=== PATIENT | female | born 1955 | race African-American/Black ===

== ENCOUNTER 2016-12-13 22:02 | Emergency (ER) | payer OTHER, SELFPAY ==
[~2016-12-13 22:02] MED LIST: Iopamidol 370 76% 100 ML VIAL ONE; Sodium Chloride 0.9% 1,000 ML BAG ONE
[2016-12-13 22:41] LABS: Bilirubin Small (Negative); Blood, Urine Negative (Negative); Clarity Clear (Clear); Glucose, Urine (Dipstick) Negative (Negative); Icto Negative (Negative); Leukocyte Trace (Negative); Nitrite Negative (Negative); Protein, Urine (Dipstick) Negative (Neg-Trace); RBC/HPF 0-3 HPF (0-3); Transitional Epithelial 0-3 HPF (0-3); pH, Urine 5.5 (5.0-9.0)
[2016-12-13 22:42] LABS: Bacteria/HPF 1+ HPF (None Seen); Renal Epithelial 0-3 HPF (0-3)
[2016-12-13] MEDS ORDERED: Morphine Sulfate 2 MG/ML SYRINGE ONE (22:55)
[2016-12-13 23:08] LABS: #Basophils 0.1 thou/uL (0.0-0.2); #Eosinphils 0.1 thou/uL (0.0-0.7); #Lymphocytes 2.7 thou/uL (1.20-3.40); #Monocytes 0.6 thou/uL (0.11-0.59); %Basophils 1.6 % (0.0-1.0); %Eosinophils 0.9 % (0.0-10.0); %Lymphocytes 49.9 % (21.0-51.0); %Monocytes 10.8 % (0.0-10.0); %Neutrophils 36.9 % (42.0-75.0); Hemoglobin 14.7 g/dL (12.0-16.0); Mean Corpuscular HGB CONC 32.7 g/dL (32.0-36.0); Mean Corpuscular Hemoglobin 31.5 pg (27.0-31.0); Mean Corpuscular Volume 96.4 fl (81.0-99.0); Mean Platelet Volume 13.6 fL (7.4-10.4); Platelet Count 179 thou/uL (130-400); RBC Distribution Width 13.4 % (11.5-14.5); Red Blood Cell (RBC) Count 4.66 mill/uL (4.20-5.40); White Blood Cell (WBC) Count 5.5 thou/uL (4.8-10.8)
[2016-12-13 23:10] LABS: Macrocytosis SLIGHT = 6-15 cells (100X) (0-5/hpf)
[2016-12-13 23:11] LABS: PLT Morphology Comment Appears Adequate
[2016-12-13 23:12] LABS: RBC Morphology A
[2016-12-13 23:14] LABS: MDiff Complete? YES
[2016-12-13 23:15] LABS: ALT (SGPT) 20 U/L (8-55); AST (SGOT) 19 U/L (5-34); Albumin 4.2 g/dL (3.5-5.0); Alkaline Phosphatase 68 U/L (40-150); Anion Gap 15 mmol/L (10-20); BUN (Urea Nitrogen) 10 mg/dL (9.8-20.1); Bilirubin, Total 0.8 mg/dL (0.2-1.2); Calc. Creatinine Clearance 0 mL/min (70-130); Calcium 11.1 mg/dL (7.8-10.44); Carbon Dioxide 28 mmol/L (22-29); Chloride 101 mmol/L (98-107); Estimated GFR-MDRD 84; Globulin 3.6 g/dL (2.4-3.5); Glucose 105 mg/dL (70-105); Potassium 3.4 mmol/L (3.5-5.1); Protein, Total 7.8 g/dL (6.0-8.3); Sodium 141 mmol/L (136-145)
--- NOTE | 2016-12-13 23:19 | CT ---
CT ABDOMEN AND PELVIS WITH IV CONTRAST 12/13/16 Multiple axial tomograms obtained through the abdomen and pelvis with IV enhancement. Oral contrast was not given. HISTORY: Acute abdominal pain. FINDINGS: The lung bases are clear. The liver, spleen, and pancreas appear unremarkable. There are numerous densely calcified gallstones packed within the gallbladder. No significant biliar y duct dilatation seen. No definite pericholecystic edema noted by CT. Adrenal glands and kidneys are unremarkable. Small bowel loops appear normal caliber. The appendix appears normal. Colon is unremarkable. Scatter ed diverticula without definite evidence of diverticulitis. Image through the pelvis reveals an abnormal uterus. The uterine fundus is enlarged and heterogeneou s measuring up to 7 cm. This may represent a large necrotic fibroid. Aorta is normal caliber. No adenopathy seen. IMPRESSION: 1. Numerous densely calcified gallstones packed within the gallbladder. Consider cholecystitis, although no definite CT evidence of cholecystitis. 2. Enlarged heterogeneous uterine fundus probably representing a leiomyoma. Suggest a followup elective MRI of pelvis for confirmation. POS: [facility]
[2016-12-13] MEDS ORDERED: HYDROcodone/Acetaminophen 10/325 mg Tablet ONE (23:41)
[2016-12-14 20:00] LABS: Lipase 4 U/L (8-78)
== END 2016-12-13 23:55 | disposition home or self-care (01) ==
LOC: MADERS 22:02
DX: K80.20 Calculus of gallbladder without cholecystitis without obstruction (principal); D25.9 Leiomyoma of uterus, unspecified; I10 Essential (primary) hypertension; Z79.82 Long term (current) use of aspirin; Z79.899 Other long term (current) drug therapy
CPT/HCPCS: 74177; 80053; 81001; 83690; 85025; 96361; 96374; J2270; J7050

== ENCOUNTER 2016-12-15 10:01 | Outpatient (CLI) | payer OTHER ==
--- NOTE | 2016-12-15 13:41 | ULT ---
ULTRASOUND ABDOMEN: HISTORY: Right upper quadrant pain. Possible gallstones. COMPARISON: CT abdomen and pelvis 12/13/16. FINDINGS: Visualized portions of the pancreas are unremarkable. Hepatic echotexture is normal. There are numerous cholelithiasis. Common bile duct measures 2 mm. Gallbladder wall thickness is 3 mm. No pericholecystic fluid. The right kidney measures 10.9 x 3.6 x 5.9 cm. The left kidney measures 9.6 x 5.6 x 5.1 cm. No mass, hydronephrosis, or abnormal calcifications of either kidney. The visualized aorta and IVC are unremarkable. Spleen is unremarkable. Sonographic Rg's sign, according to the technologist, is positive. IMPRESSION: Positive sonographic Rg's sign according to the technologist as well as cholelithiasis and gallb ladder wall thickness upper limits of normal. This may represent low-grade cholecystitis. Surgical consultation is recommended. CODE T POS: [facility]
== END 2016-12-15 10:02 | disposition home or self-care (01) ==
LOC: MADULT 10:01
PROVIDERS: ATTEND Family Medicine
DX: K80.20 Calculus of gallbladder without cholecystitis without obstruction (principal); K82.8 Other specified diseases of gallbladder
CPT/HCPCS: 76700

== ENCOUNTER 2016-12-27 04:38 | Emergency (ER) | payer OTHER | END 2016-12-27 04:50 | disposition left against medical advice (07) | LOC: MADERS 04:38 | DX: Z53.21 Procedure and treatment not carried out due to patient leaving prior to being seen by health care provider (principal) ==

== ENCOUNTER 2016-12-27 12:48 | Emergency (ER) | payer OTHER ==
[2016-12-27 13:28] LABS: Bilirubin Negative (Negative); Clarity Hazy (Clear); Glucose, Urine (Dipstick) Negative (Negative); Icto Negative (Negative); Leukocyte Trace (Negative); Nitrite Negative (Negative); Protein, Urine (Dipstick) Negative (Neg-Trace); Urobilinogen 0.2 mg/dL (0.2-1.0); pH, Urine 5.5 (5.0-9.0)
[2016-12-27 13:29] LABS: Blood, Urine Negative (Negative)
[2016-12-27 13:30] LABS: Bacteria/HPF Rare-Few HPF (None Seen); RBC/HPF None Seen HPF (0-3)
== END 2016-12-27 13:52 | disposition home or self-care (01) ==
LOC: MADERS 12:48
DX: E86.0 Dehydration (principal)
CPT/HCPCS: 81003; 81015; 99284

== ENCOUNTER 2017-11-21 16:22 | Outpatient (CLI) | payer OTHER ==
--- NOTE | 2017-11-21 18:19 | RAD ---
4 VIEWS RIGHT KNEE: Date: 11/21/17 HISTORY: Pain and swelling x2 weeks. COMPARISON: None. FINDINGS: There is no joint effusion. Mild degenerative changes of patellofemoral compartment. Moderate degener ative change of the medial compartment. No fracture or dislocation. IMPRESSION: Bicompartmental degenerative change. No fracture. POS: [facility]
== END 2017-11-21 16:23 | disposition home or self-care (01) ==
LOC: MADRAD 16:22
PROVIDERS: ATTEND Internal Medicine
DX: M25.561 Pain in right knee (principal); M17.11 Unilateral primary osteoarthritis, right knee

== ENCOUNTER 2018-05-05 09:15 | Emergency (ER) | payer OTHER ==
[2018-05-05] MEDS ORDERED: Ketorolac Tromethamine 30 MG/ML VIAL ONE (09:51)
--- NOTE | 2018-05-05 11:51 | RAD ---
THREE VIEWS OF THE RIGHT SHOULDER: DATE: 05/05/2018. COMPARISON: None. HISTORY: Shoulder injury. FINDINGS: There is mild degenerative change involving the right acromioclavicular joint. There is osteophyte f ormation involving the inferior aspect of the glenoid. There is osseous irregularity of the greater tuberosity, likely degenerative in nature. There is no displaced fracture or evidence of dislocation . There is a curvilinear osseous density along the inferior aspect of the glenoid which could repres ent an old fracture fragment or an osteophyte. IMPRESSION: Chronic-appearing findings as described above. No displaced fracture or evidence of dislocation seen . POS: [facility]
== END 2018-05-05 10:19 | disposition home or self-care (01) ==
LOC: MADERS 09:15
DX: S40.011A Contusion of right shoulder, initial encounter (principal); S81.012A Laceration without foreign body, left knee, initial encounter; E78.5 Hyperlipidemia, unspecified; I10 Essential (primary) hypertension; F41.9 Anxiety disorder, unspecified; F32.9 Major depressive disorder, single episode, unspecified; Z79.899 Other long term (current) drug therapy; Z79.82 Long term (current) use of aspirin; W11.XXXA Fall on and from ladder, initial encounter
CPT/HCPCS: 96372; J1885

== ENCOUNTER 2019-10-30 19:55 | Emergency (ER) | payer OTHER ==
[2019-10-30 20:38] LABS: Bilirubin Small (Negative); Blood, Urine Trace (Negative); Clarity Clear (Clear); Glucose, Urine (Dipstick) Negative (Negative); Ketone, Urine Negative (Negative); Leukocyte Negative (Negative); Nitrite Negative (Negative); Protein, Urine (Dipstick) 100 mg/dL (Neg-Trace); Urobilinogen 0.2 mg/dL (Less than 2)
[2019-10-30 20:39] LABS: Specific Gravity, Urine 1.021 (1.002-1.036)
[2019-10-30 20:44] LABS: Bacteria/HPF Rare-Few HPF (None Seen); RBC/HPF 0-3 HPF (0-3); Squamous Epithelial 0-3 HPF (0-3); WBC/HPF 0-3 HPF (0-3)
[2019-10-30] MEDS ORDERED: Ondansetron PF 4 MG/2 ML Vial ONE (20:49)
[2019-10-30] MEDS ORDERED: Sodium Chloride 0.9% 1,000 ML ONE (20:49)
[2019-10-30 20:51] LABS: #Lymphocytes 1.9 thou/uL (1.20-3.40); #Monocytes 0.5 thou/uL (0.11-0.59); #Neutrophils 1.7 thou/uL (1.40-6.50); %Basophils 0.4 % (0.0-1.0); %Lymphocytes 46.4 % (21.0-51.0); %Monocytes 12.3 % (0.0-10.0); %Neutrophils 40.9 % (42.0-75.0); Hemoglobin 15.3 g/dL (12.0-16.0); Mean Corpuscular HGB CONC 30.5 g/dL (32.0-36.0); Mean Corpuscular Hemoglobin 29.3 pg (27.0-31.0); Mean Corpuscular Volume 95.9 fL (78.0-98.0); Mean Platelet Volume 9.3 fL (7.4-10.4); Platelet Count 258 thou/uL (130-400); RBC Distribution Width 13.1 % (11.5-14.5); Red Blood Cell (RBC) Count 5.23 mill/uL (4.20-5.40); White Blood Cell (WBC) Count 4.1 thou/uL (4.8-10.8)
[2019-10-30 21:07] LABS: ALT (SGPT) 29 U/L (8-55); AST (SGOT) 29 U/L (5-34); Albumin 4.4 g/dL (3.4-4.8); Alkaline Phosphatase 82 U/L (40-110); Anion Gap 15 mmol/L (10-20); BUN (Urea Nitrogen) 10 mg/dL (9.8-20.1); Bilirubin, Total 0.8 mg/dL (0.2-1.2); Calc. Creatinine Clearance 0 mL/min (70-130); Calcium 10.6 mg/dL (7.8-10.44); Carbon Dioxide 27 mmol/L (23-31); Chloride 101 mmol/L (98-107); Estimated GFR-MDRD 77; Globulin 3.7 g/dL (2.4-3.5); Glucose 124 mg/dL (80-115); Protein, Total 8.1 g/dL (6.0-8.3); Sodium 140 mmol/L (136-145)
--- NOTE | 2019-10-30 21:09 | RAD ---
Chest AP view INDICATION: Hot flashes and cough COMPARISON: None FINDINGS: Lungs: The lungs are clear Cardiac silhouette: The cardiomediastinal silhouette appears within normal limits. Pulmonary vasculature: Normal Pleural spaces: No pleural effusion or pneumothorax is demonstrated. Upper abdomen: No abnormality seen. Osseous structures: No acute osseous abnormality. Additional findings: None. IMPRESSION: No acute cardiopulmonary abnormality.
[2019-10-30] MEDS ORDERED: Potassium Chloride 20 MEQ TAB ONE (21:43)
[2019-10-30] MEDS ORDERED: Enoxaparin Sodium 100 MG/ML SYRINGE ONE (21:44)
[2019-10-30 21:53] LABS: PTT 27.5 sec (22.9-36.1); Prothrombin Time 13.6 sec (12.0-14.7)
[2019-10-30 22:09] LABS: CKMB 2.4 ng/mL (0-6.6)
[2019-11-01 13:21] LABS: SARS-CoV-2 MS2 Positive; SARS-CoV-2 N Gene Positive; SARS-CoV-2 S Gene Positive; SARS-CoV-2 orf1ab Positive
== END 2019-10-31 00:30 | disposition short-term general hospital (02) ==
LOC: MADERS 19:55
DX: I48.91 Unspecified atrial fibrillation (principal); R19.7 Diarrhea, unspecified; R53.1 Weakness; E78.5 Hyperlipidemia, unspecified; E78.00 Pure hypercholesterolemia, unspecified; I10 Essential (primary) hypertension; F41.9 Anxiety disorder, unspecified; F32.9 Major depressive disorder, single episode, unspecified; Z79.82 Long term (current) use of aspirin; Z79.899 Other long term (current) drug therapy
CPT/HCPCS: 71045; 80053; 81003; 81015; 82550; 82553; 84484; 85025; 85610; 85730; 87635; 93005; 96361; 96372; 96374; J1650; J2405; J7050; U0003

== ENCOUNTER 2021-06-25 13:41 | Emergency (ER) | payer BC, OTHER | END 2021-06-25 15:03 | disposition home or self-care (01) | LOC: MADERS 13:41 | DX: S13.4XXA Sprain of ligaments of cervical spine, initial encounter (principal); I48.91 Unspecified atrial fibrillation; E78.5 Hyperlipidemia, unspecified; I10 Essential (primary) hypertension; Z79.899 Other long term (current) drug therapy; Z79.01 Long term (current) use of anticoagulants; X50.9XXA Other and unspecified overexertion or strenuous movements or postures, initial encounter | CPT/HCPCS: 99283 ==

== ENCOUNTER 2021-11-10 14:36 | Emergency (ER) | payer BC, OTHER ==
[2021-11-10] MEDS ORDERED: Potassium Chloride 20 MEQ TAB ONE (15:00)
[2021-11-10] MEDS ORDERED: Potassium Chloride 20 MEQ/100 ML PREMIX BAG ONE (15:00)
[2021-11-10 15:34] LABS: Magnesium 1.9 mg/dL (1.6-2.6)
[2021-11-10] MEDS ORDERED: Sodium Chloride 0.9% 1,000 ML ONE (16:04)
[2021-11-10 17:38] LABS: Anion Gap 18 mmol/L (10-20); BUN (Urea Nitrogen) 14 mg/dL (9.8-20.1); Calc. Creatinine Clearance 0 mL/min (70-130); Calcium 10.3 mg/dL (7.8-10.44); Carbon Dioxide 22 mmol/L (23-31); Chloride 103 mmol/L (98-107); Estimated GFR 89; Glucose 97 mg/dL (80-115); Potassium 3.7 mmol/L (3.5-5.1); Sodium 139 mmol/L (136-145)
== END 2021-11-10 18:12 | disposition home or self-care (01) ==
LOC: MADERS 14:36
DX: E87.6 Hypokalemia (principal); I48.91 Unspecified atrial fibrillation; I10 Essential (primary) hypertension; E78.5 Hyperlipidemia, unspecified; E78.00 Pure hypercholesterolemia, unspecified; Z79.01 Long term (current) use of anticoagulants; Z79.899 Other long term (current) drug therapy
CPT/HCPCS: 36415; 71045; 83735; 83880; 93005; 94760; 96361; 96374; J3480; J7050

== ENCOUNTER 2021-11-19 18:53 | Emergency (ER) | payer BC, OTHER ==
[2021-11-19] MEDS ORDERED: Dicyclomine 10 MG CAP ONE (19:39)
[2021-11-19] MEDS ORDERED: Dicyclomine 20 MG/2 ML VIAL ONE (19:39)
== END 2021-11-19 19:57 | disposition home or self-care (01) ==
LOC: MADERS 18:53
DX: K59.00 Constipation, unspecified (principal); I10 Essential (primary) hypertension; E78.5 Hyperlipidemia, unspecified; E78.00 Pure hypercholesterolemia, unspecified; I48.91 Unspecified atrial fibrillation; Z79.01 Long term (current) use of anticoagulants; Z79.899 Other long term (current) drug therapy
CPT/HCPCS: 99283

== ENCOUNTER 2021-11-25 14:21 | Outpatient (CLI) | payer BC, OTHER ==
[2021-11-25 14:59] LABS: Anion Gap 15 mmol/L (10-20); BUN (Urea Nitrogen) 9 mg/dL (9.8-20.1); Calc. Creatinine Clearance 0 mL/min (70-130); Calcium 10.7 mg/dL (7.8-10.44); Carbon Dioxide 26 mmol/L (23-31); Chloride 103 mmol/L (98-107); Estimated GFR 82; Glucose 99 mg/dL (80-115); Potassium 3.5 mmol/L (3.5-5.1); Sodium 140 mmol/L (136-145)
== END 2021-11-25 14:22 | disposition home or self-care (01) ==
LOC: MADLAB 14:21
PROVIDERS: ATTEND Family Medicine
DX: E87.6 Hypokalemia (principal)
CPT/HCPCS: 36415; 80048

== ENCOUNTER 2022-02-08 16:15 | Outpatient (CLI) | payer BC, OTHER | END 2022-02-08 16:16 | disposition home or self-care (01) | LOC: MADEKG 16:15 | PROVIDERS: ATTEND Family Medicine | DX: R00.1 Bradycardia, unspecified (principal) | CPT/HCPCS: 93005; 93010 ==

== ENCOUNTER 2022-02-27 06:33 | Outpatient (CLI) | payer BC, OTHER ==
[2022-02-27 07:21] LABS: Anion Gap 14 mmol/L (10-20); BUN (Urea Nitrogen) 12 mg/dL (9.8-20.1); Calc. Creatinine Clearance 0 mL/min (70-130); Calcium 10.3 mg/dL (7.8-10.44); Carbon Dioxide 27 mmol/L (23-31); Chloride 105 mmol/L (98-107); Estimated GFR 90; Glucose 104 mg/dL (80-115); Potassium 3.5 mmol/L (3.5-5.1); Sodium 142 mmol/L (136-145)
== END 2022-02-27 06:34 | disposition home or self-care (01) ==
LOC: MADLAB 06:33
PROVIDERS: ATTEND Family Medicine
DX: E87.6 Hypokalemia (principal)
CPT/HCPCS: 36415; 80048

== ENCOUNTER 2022-03-03 17:56 | Emergency (ER) | payer BC, OTHER ==
[2022-03-03] MEDS ORDERED: Azithromycin 250 MG TAB ONE (18:54)
== END 2022-03-03 19:01 | disposition home or self-care (01) ==
LOC: MADERS 17:56
DX: H66.91 Otitis media, unspecified, right ear (principal); I10 Essential (primary) hypertension; E78.00 Pure hypercholesterolemia, unspecified; Z79.01 Long term (current) use of anticoagulants; Z79.899 Other long term (current) drug therapy
CPT/HCPCS: 99282

== ENCOUNTER 2022-12-10 17:47 | Emergency (ER) | payer BC, MEDICARE | END 2022-12-10 18:27 | disposition home or self-care (01) | LOC: MADERS 17:47 | DX: S29.012A Strain of muscle and tendon of back wall of thorax, initial encounter (principal); I10 Essential (primary) hypertension; H66.92 Otitis media, unspecified, left ear; I48.91 Unspecified atrial fibrillation; E11.9 Type 2 diabetes mellitus without complications; E78.5 Hyperlipidemia, unspecified; X50.0XXA Overexertion from strenuous movement or load, initial encounter; Z79.01 Long term (current) use of anticoagulants; Z79.899 Other long term (current) drug therapy | CPT/HCPCS: 99282 ==

== ENCOUNTER 2023-06-20 17:42 | Emergency (ER) | payer MEDICARE ==
[2023-06-20] MEDS ORDERED: cloNIDine 0.1 MG TAB ONE (19:07)
[2023-06-20 19:21] LABS: Bilirubin Negative (Negative); Blood, Urine Trace (Negative); Glucose, Urine (Dipstick) Negative (Negative); Ketone, Urine Negative (Negative); Leukocyte Trace (Negative); Nitrite Negative (Negative); Protein, Urine (Dipstick) Negative (Neg-Trace); Specific Gravity, Urine 1.015 (1.005-1.030)
[2023-06-20 19:22] LABS: Clarity Hazy (Clear)
[2023-06-20 19:28] LABS: Bacteria/HPF Rare-Few HPF (None Seen); CAUTI Indications for Culture Dysuria,urgency,freq; RBC/HPF 0-3 HPF (0-3); Urine Culture Reflex No No
[2023-06-20 20:01] LABS: #Lymphocytes 1.7 thou/uL (1.20-3.40); #Monocytes 0.5 thou/uL (0.11-0.59); #Neutrophils 2.1 thou/uL (1.40-6.50); %Basophils 1.1 % (0.0-1.0); %Eosinophils 0.9 % (0.0-10.0); %Lymphocytes 39.3 % (21.0-51.0); %Monocytes 10.2 % (0.0-10.0); %Neutrophils 48.5 % (42.0-75.0); Hematocrit 45.1 % (36.0-47.0); Hemoglobin 14.1 g/dL (12.0-16.0); Mean Corpuscular HGB CONC 31.3 g/dL (32.0-36.0); Mean Corpuscular Volume 98.9 fl (78.0-98.0); Mean Platelet Volume 9.9 fL (7.4-10.4); Platelet Count 205 10x3/uL (130-400); RBC Distribution Width 14.2 % (11.5-14.5); Red Blood Cell (RBC) Count 4.56 mill/uL (4.20-5.40); White Blood Cell (WBC) Count 4.4 10x3/uL (4.8-10.8)
[2023-06-20 20:20] LABS: ALT (SGPT) 17 U/L (8-55); AST (SGOT) 19 U/L (5-34); Alkaline Phosphatase 68 U/L (40-110); Anion Gap 13 mmol/L (10-20); BUN (Urea Nitrogen) 11 mg/dL (9.8-20.1); Bilirubin, Total 0.6 mg/dL (0.2-1.2); Calc. Creatinine Clearance 0 mL/min (70-130); Calcium 10.5 mg/dL (7.8-10.44); Carbon Dioxide 27 mmol/L (23-31); Chloride 104 mmol/L (98-107); Estimated GFR 96; Globulin 3.3 g/dL (2.4-3.5); Glucose 94 mg/dL (80-115); Potassium 3.4 mmol/L (3.5-5.1); Protein, Total 7.3 g/dL (5.8-8.1); Sodium 141 mmol/L (136-145)
[2023-06-20] MEDS ORDERED: Cephalexin 500 MG CAP ONE (20:46)
== END 2023-06-20 20:49 | disposition home or self-care (01) ==
LOC: MADERS 17:42
DX: I10 Essential (primary) hypertension (principal); N39.0 Urinary tract infection, site not specified; E11.9 Type 2 diabetes mellitus without complications; I48.91 Unspecified atrial fibrillation; E78.5 Hyperlipidemia, unspecified; Z79.899 Other long term (current) drug therapy; Z79.01 Long term (current) use of anticoagulants
CPT/HCPCS: 36415; 80053; 81001; 85025; 87077; 87086; 99283